=== PATIENT | male | born 1985 | race Caucasian/White ===

== ENCOUNTER → 2022-03-01 11:13 | Outpatient (CLI) | payer OTHER, SELFPAY ==
[2022-03-01 13:28] LABS: COVID19 -Nasal RAPID Negative (Negative)
== END ==
PROVIDERS: Referring Provider Internal Medicine; Visit Provider Internal Medicine
DX: Z20.822 Contact with and (suspected) exposure to COVID-19 (principal)
CPT/HCPCS: 87635; C9803

== ENCOUNTER → 2022-03-01 11:23 | Outpatient (CLI) | payer OTHER, SELFPAY ==
--- NOTE | 2022-03-01 | DI.RAD.S_ITS ---
PROCEDURE: XR CHEST 2V INDICATIONS: Shortness of breath TECHNIQUE: 2 views of the chest were acquired. COMPARISON: None. FINDINGS: Surgical changes and devices: None. Lungs and pleura: Lungs are clear. No pleural effusions or pneumothorax. Mediastinum: Mediastinal contours are normal. Heart size is normal. Bones and chest wall: No suspicious bony abnormalities. Soft tissues appear unremarkable. IMPRESSION: No evidence for active disease in the chest. Dictated by: Awais Zaragoza M.D. on 03/01/2022 at 11:51 Approved by: Awais Zaragoza M.D. on 03/01/2022 at 11:52
--- NOTE | 2022-03-07 09:48 | PM.PFT.1 ---
Pulmonary Function Test Referral & Results Date Patient Seen: 03/01/22 Requesting provider: Phil Galloway Results: The spirometry demonstrates an FVC of 4.34 L which is 85% of predicted. The FEV1 was measured at 3.05 L which is 74% of predicted. The FEV1/FVC ratio was 70 which is 86% of predicted. Interpretation: This study demonstrates perhaps mild obstructive lung disease based on slight reduction in FEV1 although FEV1/FVC ratio is preserved and there is no evidence of benefit following bronchodilator
== END ==
PROVIDERS: Referring Provider Chiropractor; Visit Provider Chiropractor
DX: R06.02 Shortness of breath (principal); Z20.822 Contact with and (suspected) exposure to COVID-19
CPT/HCPCS: 71046; 87635; 94060; C9803